=== PATIENT | male | born 1950 | race Caucasian/White ===

== ENCOUNTER 2022-05-06 12:08 | Outpatient (CLI) | payer MEDICARE, SELFPAY ==
--- NOTE | ~2022-05-06 | US_ITS ---
US arterial ankle brachial ind INDICATION: Absent pedal pulses TECHNIQUE: Segmental pressures and plethysmographic and Doppler waveforms of the brachial and lower e xtremity arteries were obtained. COMPARISON: None. FINDINGS: Right and left brachial artery pressures of 147 mm Hg and 155 mm Hg, respectively, are concordant (no rmal difference <= 30 mmHg). The right ankle-brachial index (ELISHA) is 1.09 (normal >= 0.9-1.0). The right great toe-brachial index (TBI) is 0.72 (normal >= 0.60). The left ELISHA is 1.14. The left TBI is 0.72. IMPRESSION: 1. Normal bilateral ankle and toe brachial indices. Reviewed, dictated and finalized at location A.
== END 2022-05-06 12:09 | disposition home or self-care (01) ==
LOC: CHSIMG 12:11
PROVIDERS: PCP Family Medicine; Visit Provider Family Medicine
DX: R09.89 Other specified symptoms and signs involving the circulatory and respiratory systems (principal)
CPT/HCPCS: 93922

== ENCOUNTER 2022-06-19 18:29 | Emergency (ER) | payer MEDICARE, SELFPAY ==
[2022-06-19 18:45] VITALS: BP 162/72; PULSE 69; RESP 16; TEMP 36.4; O2SAT 99
--- NOTE | 2022-06-19 19:08 | ED.EXTPRO ---
HPI - Extremity Problem General Chief complaint: Extremity Problem,Nontraumatic Stated complaint: redness on left leg after surgery Time Seen by Provider: 06/19/22 18:35 Source: patient and family Mode of arrival: ambulatory Limitations: no limitations History of Present Illness HPI Narrative: this is a 71-year-old gentleman status post left knee arthroplasty performed approximately 1 week ago currently stable still in place, patient has been having some warmth and tenderness with some minimal discharge there is swelling but the patient is status post knee surgery currently denies any calf pain no tenderness in the calf area no fever chills. Complaint: extremity pain Onset (ago): day(s) Pain Consistency: constant Location: left Related Data Home Medications Medication Instructions Recorded Confirmed amlodipine 10 mg tablet 5 mg PO DAILY 06/19/22 06/19/22 atorvastatin 80 mg tablet 80 mg PO DAILY 06/19/22 06/19/22 carvedilol 6.25 mg tablet 6.25 mg PO BID 06/19/22 06/19/22 clopidogrel 75 mg tablet 75 mg PO DAILY 06/19/22 06/19/22 furosemide 40 mg tablet 40 mg PO DAILY 06/19/22 06/19/22 losartan 25 mg tablet 25 mg PO DAILY 06/19/22 06/19/22 metformin 500 mg tablet 1,000 mg PO BID 06/19/22 06/19/22 pioglitazone 15 mg tablet 15 mg PO DAILY 06/19/22 06/19/22 spironolactone 25 mg tablet 25 mg PO DAILY 06/19/22 06/19/22 tamsulosin 0.4 mg capsule 0.4 mg PO DAILY 06/19/22 06/19/22 Allergies Allergy/AdvReac Type Severity Reaction Status Date / Time No Known Allergies Allergy Verified 06/19/22 18:53 Review of Systems Review of Systems: All systems reviewed & are unremarkable except as noted in HPI and below PMFSH Past Medical History Medical History Diabetes mellitus Exam Const: General: healthy appearing and no acute distress Limitations: no limitations HENMT: Head: normal to inspection General nose exam: Normal external nose present Face and sinus: normal facial exam Mouth: Yes Normal oral and palatal mucosa present Eyes: Conjunctivae: conjunctivae normal Neck: Neck: normal visual inspection Chest: Chest palpation & inspection: normal inspection of the chest Resp: Effort & Inspection: normal respiratory effort Auscultation: clear to auscultation bilaterally Cardio: Rate: regular rate Rhythm: regular rhythm Back/Spine/Pelvis: Back: no CVA tenderness Skin: Other: surgical cathy still in place in the anterior left knee with area of erythema and tenderness and warmth Neuro: General: patient oriented x3 and moves all extremities Extrem: General: normal to inspection, no clubbing, cyanosis or edema and no pedal edema Psych: Mental Status: mental status grossly normal Affect: normal affect Course Course Emergency Course: patient had blood work and a blood cultures are performed, CBC and CMP were reviewed with patient, patient did receive an injection of 1g IM ceftriaxone. Vital Signs Vital signs: Vital Signs Temperature 36.4 C L 06/19/22 18:45 Pulse Rate 69 06/19/22 18:45 Respiratory Rate 16 06/19/22 18:45 Blood Pressure 162/72 H 06/19/22 18:45 Pulse Oximetry 99 06/19/22 18:45 Oxygen Delivery Room Air 06/19/22 18:45 Temperature 36.4 C L 06/19/22 18:45 Pulse Rate 69 06/19/22 18:45 Respiratory Rate 16 06/19/22 18:45 Blood Pressure 162/72 H 06/19/22 18:45 Pulse Oximetry 99 06/19/22 18:45 Oxygen Delivery Room Air 06/19/22 18:45 Critical Care Time Critical Care Time Critical Care Time: No Discharge Plan Discharge Clinical Impression: Cellulitis Patient Disposition: Home, Self-Care Condition: Stable Instructions: Antibiotic Form, Cellulitis (ED) Additional Instructions: take medicine as prescribed and follow-up with primary care physician/ orthopedist for further evaluation and treatment. Prescriptions: New amoxicillin-pot clavulanate [Augmentin] 500-125 mg tablet 1
[2022-06-19 19:16] LABS: Basophils Absolute Auto 0.03 K/mm3 (0.00-0.10); Basophils Percent Auto 0.4 % (0.0-1.0); Eosinophils Absolute Auto 0.45 K/mm3 (0.02-0.50); Eosinophils Percent Auto 6.3 % (1.0-6.0); Hematocrit 31.4 % (37.0-46.0); Hemoglobin 10.2 g/dL (12.4-15.3); Immature Granulocyte Absolute 0.08 K/mm3 (0.00-0.00); Immature Granulocyte Percent A 1.1 % (0.0-0.0); Lymphocytes Absolute Auto 0.66 K/mm3 (1.10-4.50); Lymphocytes Percent Auto 9.3 % (18.0-42.0); Mean Corpuscular HGB Conc 32.5 g/dL (32.0-36.0); Mean Corpuscular Hemoglobin 28.3 pg (27.0-31.0); Mean Platelet Volume 10.5 fl (8.7-11.0); Monocytes Absolute Auto 0.78 K/mm3 (0.10-0.90); Neutrophils Absolute Auto 5.1 K/mm3 (1.7-7.2); Neutrophils Percent Auto 71.9 % (50.0-70.0); Platelet Count Result 330 K/mm3 (150-420); Red Blood Count 3.61 M/mm3 (4.70-6.10); Red Cell Distribution Width 14.4 % (11.6-14.4); White Blood Count 7.1 K/mm3 (4.8-10.8)
[2022-06-19] MEDS: cefTRIAXone 1 GM, LIDOCAINE HCL 1% LOCAL INJ 2.1 ML IM (19:21)
[2022-06-19 19:29] LABS: Alanine Aminotransferase 23 U/L (16-63); Albumin Level 2.8 g/dL (3.4-5.0); Alkaline Phosphatase 59 U/L (46-116); Anion Gap 8 mmol/L (8-16); Aspartate Amino Transferase 15 U/L (15-37); Bilirubin,Total 0.6 mg/dL (0.00-1.00); Blood Urea Nitrogen 28 mg/dL (7-18); Calcium 8.7 mg/dL (8.5-10.1); Carbon Dioxide 28 mmol/L (21-32); Chloride 97 mmol/L (98-108); Estimated Glomerular Filt Rate 54; Glucose 174 mg/dL (70-99); Osmolality Calculated 285 mOsm/kg (285-295); Potassium 3.8 mmol/L (3.5-5.1); Sodium 133 mmol/L (136-145); Total Protein 6.5 g/dL (6.4-8.2)
[2022-06-19 20:12] VITALS: BP 144/64; PULSE 67; RESP 18; O2SAT 99
== END 2022-06-19 20:13 | disposition home or self-care (01) ==
PROVIDERS: Emergency Provider Emergency Medicine; PCP Family Medicine
DX: L03.116 Cellulitis of left lower limb (principal); E11.9 Type 2 diabetes mellitus without complications
CPT/HCPCS: 36415; 80053; 85025; 87040; 96372; 99283; J0696